=== PATIENT | male | born 1945 | race African-American/Black ===

== ENCOUNTER 2019-07-19 16:33 | Emergency (ER) | payer MEDICARE, OTHER, SELFPAY ==
--- NOTE | ~2019-07-19 | XR_ITS ---
EXAMINATION: XR chest 1V portable EXAM DATE: 07/19/2019 17:22 INDICATION: Shortness of breath, dyspnea. TECHNIQUE: Frontal and lateral projections of the chest obtained and reviewed. Comparison is made to prior examination from 05/17/2017. FINDINGS: There is rounded cardiac silhouette, cardiomegaly versus pericardial effusion. There is pu lmonary vascular congestion. Shape is more rounded than on previous examination. No confluent consoli dation, pneumothorax or pleural effusion suspected. Some linear left upper lobe atelectasis. IMPRESSION: 1. Enlarged cardiac silhouette, cardiomegaly versus pericardial effusion. Pulmonary vascular congest ion. Reviewed, dictated and finalized at location A. PREPARER IMPRESSION: 1. Enlarged cardiac silhouette, cardiomegaly versus pericardial effusion. Pulm onary vascular congestion.
--- NOTE | 2019-07-19 16:33 | ED.GENADULT ---
HPI - General Adult General Chief complaint: Shortness of Breath/Dyspnea Stated complaint: sob Time Seen by Provider: 07/19/19 16:34 Source: patient and EMS Mode of arrival: EMS Limitations: no limitations History of Present Illness HPI narrative: The pt is a 73 y/o male who presents to the ED, via EMS, with c/o SOB that began 1 hour ago. Per EMS personnel, the pt was seen at the [facility] last night for low BP. The pt called EMS today and was found sitting outside when EMS arrived. EMS personnel state that the pt's breathing was labored and that Albuterol an Decadron was administered en route. The pt denies fever, leg edema, or CP. He has a PMHx of COPD, smokes cigarettes, and is not on home O2. The pt states that he has had to be on a BiPAP in the past. complaint: SOB Onset (ago): hour(s) (1) Associated symptoms: denies other symptoms Treatments prior to arrival: other (Albuterol, Decadron) Related Data Allergies Allergy/AdvReac Type Severity Reaction Status Date / Time No Known Allergies Allergy Unverified 10/01/16 11:08 Review of Systems Review of Systems: Narrative: CONSTITUTIONAL: Denies fever. CARDIOVASCULAR: Denies chest pain or leg edema. RESPIRATORY: Reports dyspnea. All systems reviewed & are unremarkable except as noted in HPI and below PMFSH Past Medical History Medical History CHF (congestive heart failure) COPD (chronic obstructive pulmonary disease) Hypertension Surgical History Surgical History History of orthopedic surgery lt knee Social History Social History Smoking status: Current every day smoker Second hand tobacco smoke exposure: Yes Gender identity (if verbalized by the patient): Male Exam Narrative: Exam Narrative: GENERAL: Respiratory distress. Awake and alert. HEAD: Normocephalic, atraumatic. EYES: PERRLA and EOMI. ENT: Nares clear, no rhinorrhea or epistaxis. Mucous membranes moist. NECK: Supple. CHEST: Respiratory distress. Coarse breath sounds. Tachypneic. Decreased aeration in bases. Using accessory muscles to breathe. HEART: Tachycardic. Regular rhythm. No murmur heard. Normal peripheral pulses. ABDOMEN: Soft, nontender, nondistended, normal active bowel sounds. EXTREMITIES: Normal range of motion. No edema. SKIN: Warm, dry, no rash. NEURO: No focal deficits. Alert and oriented X3. Course Course Emergency Course: Patient presented to the emergency department in acute respiratory failure, respiratory distress. Patient was placed on nonrebreather, immediately started on DuoNeb treatment, magnesium and steroids. IV access was obtained, EKG showed no acute ischemic changes. Laboratory work-up is concerning for COPD and concurrent CHF exacerbation. Patient does have a history of both. He did much better following the DuoNeb treatment as well as placed on BiPAP, and continues to do well on this while in the ER. He had a home dose of Lasix at that began to work, patient had good urine output while in the ER. His chest x-ray is most concerning for CHF exacerbation. Patient was initially accepted for admission to this hospital, but then patient has to be transferred to the [facility] where he was recently admitted and discharged from. We were able to obtain a bed at that facility as well. Patient was then updated that he had a bed available at the [facility], and then he requested to be discharged home because he wanted to go home to get his car and check on a few things at his house. I did explain to the patient that due to his respiratory status, possible decline, that it would not be safe for him to do this, and I recommended that he stay that [facility]. The patient then declined, stating that he wanted to leave the hospital AGAINST MEDICAL ADVICE. Patient was made aware of the risk such as
--- NOTE | 2019-07-19 16:39 | ECG_ITS ---
Measurements Intervals [place] Rate: 116 P: 64 MS: 173 QRS: -16 QRSD: 109 T: 121 QT: 313 QTc: 435 Interpretive Statements SINUS TACHYCARDIA ATRIAL PREMATURE COMPLEXES ST-T WAVE ABNORMALITY IN ANTEROLAT/LAT LEADS- CONSIDER ISCHEMIA BASELINE ARTIFACT- I, II, III, AVR, AVL, AVF, V1-V6 ABNORMAL ECG Electronically Signed On 07-19-2019 18:34:32 [employer]ADE ALIGNER by Naresh Saldana D.O.
[2019-07-19 16:54] LABS: Alveolar/Arterial O2 Gradient 373.7 mmHg; Base Excess ABG -1.4 mEq/l (+/-2.0); Carboxyhemoglobin 0.8 % THb (0-2.0); Fractional Inspired Oxygen 100 %; HCO3 ABG 25.7 mEq/l (22.0-26.0); Methemoglobin ABG 0.2 %THb (0-1.5); Oxygen Content ABG 14.4 %vol (16.0-22.0); Oxygen Saturation ABG 99.6 % (95.0-100.0); Oxyhemoglobin 97.9 % THb (90.0-100.0); PCO2 ABG 55.2 mmHg (35.0-45.0); PO2 ABG 284.1 mmHg (80.0-100.0); PO2 FiO2 Ratio Arterial Blood 2.84 %; Reduced Hemoglobin 1.1 %THb (0-5.0); Total Hemoglobin 9.9 g/dL (12.0-18.0)
[2019-07-19 16:56] LABS: Device NON-REBREATHER MASK; Site Drawn RIGHT BRACHIAL; pH ABG 7.286 (7.350-7.450)
[2019-07-19] MEDS: ALBUTEROL SULFATE NEB 2.5 MG/0.5 ML INH 20 MG INHALATION (16:58)
[2019-07-19] MEDS: IPRATROPIUM BR 0.02% INH SOLN 0.5 MG/2.5 ML VIAL 2 MG INHALATION (16:58)
[2019-07-19] MEDS: methylPREDNISolone SOD SUCC 125 MG VIAL IV PUSH (16:59)
[2019-07-19] MEDS: SODIUM CHLORIDE 0.9% IV 500 ML 999 ML IV CONT (16:59)
[2019-07-19] MEDS: MAGNESIUM SULF 2 GM/WATER 50ML 2 GM/50 ML BAG IVPB (17:03)
[2019-07-19 17:24] LABS: Basophils Percent Auto 0.4 % (0.2-1.2); Eosinophils Absolute Auto 0.3 K/mm3 (0-0.3); Eosinophils Percent Auto 2.9 % (0-4.4); Hematocrit 28.6 % (42.0-52.0); Hemoglobin 8.6 g/dL (14.0-18.0); Immature Granulocyte Absolute 0.04 K/mm3 (0.00-0.031); Immature Granulocyte Percent A 0.4 % (0-0.5); Lymphocytes Absolute Auto 2.08 K/mm3 (0.9-3.2); Lymphocytes Percent Auto 18.4 % (18.3-44.2); Mean Corpuscular HGB Conc 30.1 g/dl (32-36); Mean Corpuscular Hemoglobin 23.3 pg (26-34); Mean Corpuscular Volume 77.5 fl (80-100); Mean Platelet Volume 10.8 fl (7.4-10.4); Monocytes Absolute Auto 0.5 K/mm3 (0.1-0.6); Monocytes Percent Auto 4.2 % (2.6-8.5); Neutrophils Absolute Auto 8.3 K/mm3 (1.3-6.7); Neutrophils Percent Auto 73.7 % (45.5-73.1); Nucleated Red Blood Cells Perc 0.2 % (0.0-0.2); Platelet Count Result 267 k/mm3 (150-375); Red Blood Count 3.69 M/mm3 (4.6-6.20); Red Cell Distribution Width 18.7 % (11.5-14.5); White Blood Count 11.3 K/mm3 (4.5-10.0)
[2019-07-19 17:30] VITALS: PULSE 111; RESP 34
[2019-07-19 17:35] LABS: INR 1.2; Prothrombin Time 15.3 Seconds (11.1-14.7)
[2019-07-19 17:36] LABS: Partial Thromboplastin Time 33.8 SECONDS (22.3-36.8)
[2019-07-19 17:38] LABS: Blood Urea Nitrogen 25 mg/dL (9-20); Carbon Dioxide 24 mmol/L (22-30); Chloride 99 mmol/L (98-107); Estimated Glomerular Filt Rate 52; Glucose 174 mg/dL (75-110); Potassium 4.1 mmol/L (3.4-5.0); Sodium 137 mmol/L (137-145)
[2019-07-19 17:57] LABS: Troponin I 0.055 ng/mL (0.000-0.034)
[2019-07-19 17:58] LABS: NT Pro B Type Natriuretic Pept 2670 PG/ML (5-100)
[2019-07-19 18:20] VITALS: RESP 23
[2019-07-19 18:31] VITALS: PULSE 80
[2019-07-19 20:38] VITALS: BP 168/98; PULSE 86; RESP 19; O2SAT 97
[2019-07-19 21:23] VITALS: BP 172/113; PULSE 91; O2SAT 95
--- NOTE | 2019-07-19 21:25 | PC.NURSE ---
Pt refused any further medical treatment. Pt asked to go home, Dr. Chun informed pt of risks of leaving but pt still wanted to leave. Pt refused the 3 hour tropinin blood draw and any other further medical treatment. Pt did sign AMA form
--- NOTE | 2019-07-26 16:57 | PC.NURSE ---
Late entry by this RN, Pt received 50 ml of Mag and was completed at 1738, Pt received 1000ml of NS and was completed at 1709.
== END 2019-07-19 21:24 | disposition left against medical advice (07) ==
LOC: ANHED 18:35 → ANHIMU 20:46
PROVIDERS: Emergency Provider Emergency Medicine
DX: J44.1 Chronic obstructive pulmonary disease with (acute) exacerbation (principal); I50.9 Heart failure, unspecified; J96.90 Respiratory failure, unspecified, unspecified whether with hypoxia or hypercapnia; I11.0 Hypertensive heart disease with heart failure; F17.200 Nicotine dependence, unspecified, uncomplicated
CPT/HCPCS: 36415; 36600; 71045; 80048; 82375; 82805; 83050; 83880; 84484; 85025; 85610; 85730; 93005; 94002; 96365; 96375; 99284; J2930; J3475; J7040

== ENCOUNTER 2019-08-29 21:34 | Emergency (ER) | payer MEDICARE, OTHER, SELFPAY ==
--- NOTE | ~2019-08-29 | XR_ITS ---
EXAMINATION: XR chest 2V DATE: 08/29/2019 22:39 INDICATION: Shortness of breath, history of congestive heart failure TECHNIQUE: PA and lateral views of the chest are obtained. COMPARISON: 07/19/2019 FINDINGS: A mild diffuse interstitial pattern is present. There is no pleural effusion or pneumothora x. There is unchanged enlargement of the cardiac silhouette. There is thoracic levoscoliosis. IMPRESSION: 1. Diffuse interstitial pattern, likely pulmonary edema although differential includes multifocal pne umonia and atelectasis. 2. Unchanged enlargement of the cardiac silhouette, cardiomegaly versus pericardial effusion. Reviewed, dictated and finalized at location A. THERAPIST IMPRESSION: 1. Diffuse interstitial pattern, likely pulmonary edema although differential i ncludes multifocal pneumonia and atelectasis. 2. Unchanged enlargement of the cardiac silhouette, cardiomegaly versus pericar dial effusion.
[2019-08-29 21:38] VITALS: BP 148/76; PULSE 81; RESP 21; TEMP 36.4; O2SAT 97; O2SAT 98
--- NOTE | 2019-08-29 21:48 | ED.SOB ---
HPI - SOB/Dyspnea General Chief Complaint: Shortness of Breath/Dyspnea Stated Complaint: diff breathing Time Seen by Provider: 08/29/19 21:48 Source: patient Mode of arrival: EMS Limitations: no limitations History of Present Illness HPI Narrative: A 74 y/o male, with a PMHx of COPD and CHF, presents to the ED, via EMS, with c/o SOB for a few days that worsened this evening. Pt states he was admitted to the hospital this past week for the same complaints and was d/c this morning. Pt was given a Nebulizer treatment last night and was not d/c with any antibiotics or steroids. Pt was watching TV this evening when the SOB came on suddenly. He denies CP, a fever, and a PMHx of an MA. Pt had a cardiac cath with stent placement 3 years ago. 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 Pertinent past history: COPD and other (CHF) Onset (ago): day(s) (few) Known history of: COPD and other (CHF) Related Data Allergies Allergy/AdvReac Type Severity Reaction Status Date / Time No Known Allergies Allergy Verified 08/29/19 21:58 Review of Systems Review of Systems: All systems reviewed & are unremarkable except as noted in HPI and below Constitutional: Constitutional: Denies fever(s) Cardiovascular: Cardiovascular: Denies chest pain Respiratory: Respiratory: Reports dyspnea PMFSH Past Medical History Medical History (Updated 08/29/19 @ 23:53 by Vicky Mckoy MD) CHF (congestive heart failure) COPD (chronic obstructive pulmonary disease) Hypertension Surgical History Surgical History (Updated 08/29/19 @ 22:00 by Trinity Gonzalez) H/O left knee surgery History of cardiac cath with stent History of orthopedic surgery lt knee Social History Social History Smoking status: Current every day smoker Second hand tobacco smoke exposure: Yes Gender identity (if verbalized by the patient): Male Comments No PCP on file. Exam Narrative: Exam Narrative: GENERAL: well-nourished HEAD: Normocephalic, atraumatic EYES: PERRLA and EOMI, conjunctiva clear without discharge EARS: TM's clear bilaterally without erythema or dullness NOSE: Nares clear, no rhinorrhea or epistaxis THROAT:Mucous membranes moist, Oropharynx normal without erythema, exudate, peritonsillar swelling or fluctuance NECK: Supple, without lymphadenopathy or mass RESPIRATORY: No respiratory distress, Airway patent, tachypnea bibasilar rhonchi HEART: Regular rate and rhythm. No murmur heard. Normal peripheral pulses. ABDOMEN: Soft, nontender, nondistended, normal active bowel sounds. No masses. No rebound or guarding, No organomegaly. EXTREMITIES: No edema, normal strength with full range of motion. SKIN: Warm, dry, normal color without rash NEURO: Alert and oriented x3. CN 2-12 grossly intact. No focal deficits. PSYCH: Normal mood and affect. Course Reevaluation(s) Reevaluation #1: Patient states he feels better. I discussed that he will need to be admitted. Patient states he left his house and unlocked so he needs to go home and then [facility] He states he needs to sign AMA. I Discussed risk with patient about leaving and he states he understands. Date: 08/29/19 Time: 23:50 Vital Signs Vital signs: Vital Signs Temperature 97.5 F L 08/29/19 21:38 Pulse Rate 81 08/29/19 21:38 Respiratory Rate 21 H 08/29/19 21:38 Blood Pressure 148/76 H 08/29/19 21:38 Pulse Oximetry 98 08/29/19 21:38 Temperature 97.5 F L 08/29/19 21:38 Pulse Rate 81 08/29/19 21:38 Respiratory Rate 21 H 08/29/19 21:38 Blood Pressure 148/76 H 08/29/19 21:38 Pulse Oximetry 98 08/29/19 21:38 MDM - SOB/Dyspnea Differential Diagnosis Differential diagnosis: Likely acute exacerbation of chronic obstructive airways disease, congestive heart failure and community acquired pneumonia Lab Data Attestation: I reviewed the patient's lab results. Result diagrams: 08/29/19 22:51
--- NOTE | 2019-08-29 22:03 | ECG_ITS ---
Measurements Intervals [place] Rate: 84 P: 69 ME: 157 QRS: -14 QRSD: 111 T: 119 QT: 383 QTc: 454 Interpretive Statements SINUS RHYTHM ATRIAL AND VENTRICULAR PREMATURE COMPLEXES INCOMPLETE LEFT BUNDLE BRANCH BLOCK ST-T WAVE ABNORMALITY IN LATERAL LEADS- CONSIDER ISCHEMIA ABNORMAL ECG Electronically Signed On 08-30-2019 8:24:35 [employer]IMAL HUSBANDRY WORKER by Naresh Saldana D.O.
[2019-08-29 22:28] LABS: Alveolar/Arterial O2 Gradient 53.5 mmHg; Base Excess ABG -0.8 mEq/l (+/-2.0); Carboxyhemoglobin 0.2 % THb (0-2.0); Fractional Inspired Oxygen 21 %; HCO3 ABG 23.2 mEq/l (22.0-26.0); Methemoglobin ABG 0.2 %THb (0-1.5); Oxygen Content ABG 10.9 %vol (16.0-22.0); Oxygen Saturation ABG 89.2 % (95.0-100.0); Oxyhemoglobin 84.9 % THb (90.0-100.0); PCO2 ABG 35.4 mmHg (35.0-45.0); PO2 ABG 53.8 mmHg (80.0-100.0); PO2 FiO2 Ratio Arterial Blood 2.56 %; Reduced Hemoglobin 14.7 %THb (0-5.0); Total Hemoglobin 9.1 g/dL (12.0-18.0); pH ABG 7.434 (7.350-7.450)
[2019-08-29 22:29] LABS: Device ROOM AIR; Site Drawn RIGHT BRACHIAL
--- NOTE | 2019-08-29 22:38 | PC.NURSE ---
Patient taken to radiology.
[2019-08-29 23:02] LABS: Basophils Percent Auto 0.4 % (0.2-1.2); Eosinophils Absolute Auto 0.2 K/mm3 (0-0.3); Eosinophils Percent Auto 1.5 % (0-4.4); Hematocrit 28.6 % (42.0-52.0); Hemoglobin 8.4 g/dL (14.0-18.0); Immature Granulocyte Absolute 0.05 K/mm3 (0.00-0.031); Immature Granulocyte Percent A 0.4 % (0-0.5); Lymphocytes Absolute Auto 0.84 K/mm3 (0.9-3.2); Lymphocytes Percent Auto 7.5 % (18.3-44.2); Mean Corpuscular HGB Conc 29.4 g/dl (32-36); Mean Corpuscular Hemoglobin 23.1 pg (26-34); Mean Corpuscular Volume 78.6 fl (80-100); Mean Platelet Volume 11.2 fl (7.4-10.4); Monocytes Absolute Auto 0.3 K/mm3 (0.1-0.6); Monocytes Percent Auto 2.9 % (2.6-8.5); Neutrophils Absolute Auto 9.8 K/mm3 (1.3-6.7); Neutrophils Percent Auto 87.3 % (45.5-73.1); Nucleated Red Blood Cells Perc 0.3 % (0.0-0.2); Platelet Count Result 260 k/mm3 (150-375); Red Blood Count 3.64 M/mm3 (4.6-6.20); Red Cell Distribution Width 21.2 % (11.5-14.5); White Blood Count 11.2 K/mm3 (4.5-10.0)
[2019-08-29 23:13] LABS: Blood Urea Nitrogen 35 mg/dL (9-20); Calcium 9.5 mg/dL (8.4-10.2); Carbon Dioxide 28 mmol/L (22-30); Chloride 96 mmol/L (98-107); Estimated Glomerular Filt Rate 38; Glucose 119 mg/dL (75-110); Sodium 142 mmol/L (137-145)
[2019-08-29 23:14] LABS: INR 1.1; Prothrombin Time 13.9 Seconds (11.1-14.7)
[2019-08-29 23:15] LABS: Partial Thromboplastin Time 27.5 SECONDS (22.3-36.8)
[2019-08-29 23:24] LABS: Macrocytosis 1+ (NORMAL); Microcytosis 2+ (NORMAL); Platelet Estimate Adequate (Adequate)
[2019-08-29 23:33] LABS: NT Pro B Type Natriuretic Pept 7720 PG/ML (5-100); Troponin I 0.062 ng/mL (0.000-0.034)
[2019-08-30 00:08] VITALS: BP 124/68; PULSE 90; RESP 20; O2SAT 97
== END 2019-08-30 00:11 | disposition left against medical advice (07) ==
PROVIDERS: Emergency Provider General Practice
DX: J44.1 Chronic obstructive pulmonary disease with (acute) exacerbation (principal); I11.0 Hypertensive heart disease with heart failure; I50.9 Heart failure, unspecified; Z95.5 Presence of coronary angioplasty implant and graft; F17.200 Nicotine dependence, unspecified, uncomplicated; I49.1 Atrial premature depolarization; I49.3 Ventricular premature depolarization; R94.31 Abnormal electrocardiogram [ECG] [EKG]
CPT/HCPCS: 36415; 36600; 71046; 80048; 82375; 82805; 83050; 83880; 84484; 85025; 85610; 85730; 93005; 99284

== ENCOUNTER 2019-10-01 04:24 | Emergency (ER) | payer MEDICARE, OTHER, SELFPAY ==
--- NOTE | ~2019-10-01 | XR_ITS ---
EXAMINATION: XR chest 2V EXAM DATE: 10/01/2019 05:02 INDICATION: Shortness of breath. TECHNIQUE: Frontal and lateral projections of the chest obtained and reviewed. Comparison is made to prior examination from 08/29/2019. FINDINGS: There is cardiomegaly. There is patchy bibasilar atelectasis and/or pneumonia. Some scatte red postinfectious residua. No pneumothorax or pleural effusion. Cardiac silhouette is enlarged but s table in size compared to prior exam. There are bony degenerative changes. There is moderate thoracol umbar scoliosis. IMPRESSION: 1. Patchy bibasilar atelectasis and/or pneumonia. 2. Cardiomegaly. Reviewed, dictated and finalized at location A.
[2019-10-01 04:35] VITALS: BP 183/86; PULSE 86; RESP 25; TEMP 37; O2SAT 94
[2019-10-01 04:40] VITALS: PULSE 86; RESP 21
[2019-10-01] MEDS: IPRATROPIUM BR 0.02% INH SOLN 0.5 MG/2.5 ML VIAL INHALATION (04:43)
[2019-10-01] MEDS: ALBUTEROL SULFATE NEB 2.5 MG/0.5 ML INH 5 MG INHALATION (04:43)
[2019-10-01 04:49] VITALS: PULSE 80; RESP 22
[2019-10-01 04:50] LABS: Basophils Percent Auto 0.5 % (0.2-1.2); Eosinophils Absolute Auto 0.2 K/mm3 (0-0.3); Eosinophils Percent Auto 1.8 % (0-4.4); Hematocrit 35.5 % (42.0-52.0); Immature Granulocyte Absolute 0.03 K/mm3 (0.00-0.031); Immature Granulocyte Percent A 0.3 % (0-0.5); Immature Platelet Fraction Pct 5.1 % (0.9-11.2); Lymphocytes Absolute Auto 1.24 K/mm3 (0.9-3.2); Lymphocytes Percent Auto 14.1 % (18.3-44.2); Mean Corpuscular Hemoglobin 26.4 pg (26-34); Mean Corpuscular Volume 85.3 fl (80-100); Monocytes Absolute Auto 0.3 K/mm3 (0.1-0.6); Monocytes Percent Auto 3.7 % (2.6-8.5); Neutrophils Percent Auto 79.6 % (45.5-73.1); Platelet Count Result 175 k/mm3 (150-375); Red Blood Count 4.16 M/mm3 (4.6-6.20); Red Cell Distribution Width 26.3 % (11.5-14.5); White Blood Count 8.8 K/mm3 (4.5-10.0)
[2019-10-01 04:52] VITALS: BP 119/76; PULSE 92; RESP 16; O2SAT 100
--- NOTE | 2019-10-01 05:09 | ED.SOB ---
HPI - SOB/Dyspnea General Chief Complaint: Shortness of Breath/Dyspnea Stated Complaint: DIFF BREATHING Time Seen by Provider: 10/01/19 04:25 History of Present Illness HPI Narrative: Patient is a 74-year-old male who presents ER with shortness of breath. Sudden onset while sitting watching TV. Diagnosed with pneumonia last week and is completed dual course of antibiotics. Shortness of breath was 8/10 after being picked up by EMS. He received nebulizer in route and is now 3/10. He does have a cough. No fevers or chills at this time. He has been without chest pain/chest pressure. Has history of COPD as well as CHF. Took two torsamide tabs tonight. Related Data Allergies Allergy/AdvReac Type Severity Reaction Status Date / Time No Known Allergies Allergy Verified 08/29/19 21:58 Review of Systems Review of Systems: All systems reviewed & are unremarkable except as noted in HPI and below Constitutional: Constitutional: Denies chills, Denies fever(s) and Denies weakness ENT: Denies nasal congestion and Denies sore throat Cardiovascular: Cardiovascular: Reports no additional cardiovascular complaints and Denies chest pain Respiratory: Respiratory: Reports cough, Reports dyspnea and Reports wheezing Gastrointestinal: Gastrointestinal: Denies abdominal pain, Denies nausea and Denies vomiting Neurologic: Denies dizziness and Denies weakness PMFSH Past Medical History Medical History (Updated 10/01/19 @ 06:01 by Winston Reinoso MD) CHF (congestive heart failure) COPD (chronic obstructive pulmonary disease) Hypertension Surgical History Surgical History (Updated 08/29/19 @ 22:00 by Trinity Gonzalez) H/O left knee surgery History of cardiac cath with stent History of orthopedic surgery lt knee Social History Social History Smoking status: Current every day smoker Second hand tobacco smoke exposure: Yes Gender identity (if verbalized by the patient): Male Exam Narrative: Exam Narrative: GENERAL: Well-appearing, well-nourished, and in no acute distress. HEAD: Normocephalic, atraumatic. EYES: PERRL and EOMI. ENT: Mucous membranes moist. CHEST: Clear to auscultation. No respiratory distress with increased respiratory rate. HEART: Regular rate and rhythm. Normal peripheral pulses. ABDOMEN: Soft, nontender, nondistended. EXTREMITIES: Normal range of motion. No edema. SKIN: Warm, dry, no rash. NEURO: Alert and oriented x3. Course Course Emergency Course: Patient received additional nebulizer. Feels much better. Patient is moving air with increased ease. Ambulated without hypoxia. Patient has albuterol that he has not been using over the last week. Recommend using it every 4 hours we will also start him on prednisone. Infiltrate is likely resolving PNA given pts h/o and labs. Vital Signs Vital signs: Vital Signs Temperature 98.6 F 10/01/19 04:35 Pulse Rate 86 10/01/19 04:35 Respiratory Rate 25 H 10/01/19 04:35 Blood Pressure 183/86 H 10/01/19 04:35 Pulse Oximetry 94 10/01/19 04:35 Temperature 98.6 F 10/01/19 04:35 Pulse Rate 79 10/01/19 05:26 Respiratory Rate 22 H 10/01/19 05:26 Blood Pressure 121/65 10/01/19 05:26 Pulse Oximetry 100 10/01/19 05:26 MDM - SOB/Dyspnea Lab Data Result diagrams: 10/01/19 04:41 10/01/19 04:41 Labs: Lab Results 10/01/19 10/01/19 10/01/19 Range/Units 04:41 04:41 04:41 WBC 8.8 (4.5-10.0) K/mm3 RBC 4.16 L (4.6-6.20) M/mm3 Hgb 11.0 L (14.0-18.0) g/dL Hct 35.5 L (42.0-52.0) % MCV 85.3 (80-100) fl MCH 26.4 (26-34) pg MCHC 31.0 L (32-36) g/dl RDW 26.3 H (11.5-14.5) % Plt Count 175 (150-375) k/mm3 MPV TNP Immature Gran % (Auto) 0.3 (0-0.5) % Neut % (Auto) 79.6 H (45.5-73.1) % Lymph % (Auto) 14.1 L (18.3-44.2) % [place] % (Auto) 3.7 (2.6-8.5) % Eos % (Auto) 1.8 (0-4.4) %
[2019-10-01 05:13] LABS: Blood Urea Nitrogen 28 mg/dL (9-20); Calcium 9.1 mg/dL (8.4-10.2); Carbon Dioxide 30 mmol/L (22-30); Chloride 103 mmol/L (98-107); Estimated CRCL calculation 38 ml/min; Estimated Glomerular Filt Rate 56; Glucose 173 mg/dL (75-110); Potassium 4.2 mmol/L (3.4-5.0); Sodium 140 mmol/L (137-145)
[2019-10-01 05:15] LABS: NT Pro B Type Natriuretic Pept 4780 PG/ML (5-100)
[2019-10-01 05:21] LABS: Hypochromasia 1+ (NORMAL); Macrocytosis 1+ (NORMAL); Microcytosis 1+ (NORMAL); Ovalocytes 1+ (NORMAL); Platelet Estimate Adequate (Adequate)
[2019-10-01 05:26] VITALS: BP 121/65; PULSE 79; RESP 22; O2SAT 100
--- NOTE | 2019-10-01 05:49 | PC.NURSE ---
pt ambulated w/ this rn per md verbal orders w/ pulse ox. pt o2 sat didn't go lower than 93%, pt had no concerns or difficulties. md notified.
[2019-10-01] MEDS: predniSONE 20 MG TABLET 60 MG PO (06:18)
[2019-10-01 06:32] VITALS: BP 122/94; PULSE 71; RESP 16; TEMP 36.8; O2SAT 94
--- NOTE | 2019-10-01 13:49 | ECG_ITS ---
Measurements Intervals [place] Rate: 95 P: 51 IA: 165 QRS: -28 QRSD: 114 T: 124 QT: 362 QTc: 456 Interpretive Statements SINUS RHYTHM ATRIAL AND VENTRICULAR PREMATURE COMPLEXES INCOMPLETE LEFT BUNDLE BRANCH BLOCK ST-T WAVE ABNORMALITY IN LATERAL LEADS- CONSIDER ISCHEMIA BASELINE ARTIFACT- I, II, AVR, V4-V6 ABNORMAL ECG Electronically Signed On 10-01-2019 13:53:22 CDT by Naresh Saldana D.O.
== END 2019-10-01 06:34 | disposition home or self-care (01) ==
PROVIDERS: Emergency Provider Emergency Medicine
DX: J44.1 Chronic obstructive pulmonary disease with (acute) exacerbation (principal); I11.0 Hypertensive heart disease with heart failure; I50.9 Heart failure, unspecified
CPT/HCPCS: 36415; 71046; 80048; 83880; 85025; 85055; 93005; 94640; 99283; J7512